=== PATIENT | male | born 1985 | race Caucasian/White ===

== ENCOUNTER → 2016-03-26 | Outpatient (CLI) | payer BC ==
[2016-03-26 08:37] LABS: HEMOGLOBIN 15.2 g/dL (14.0-18.0); MEAN CORPUSCULAR HEMOGLOBIN 30.5 PG (27-31); MEAN CORPUSCULAR HGB CONC 34.5 g/dL (33-37); MEAN PLATELET VOLUME 10.7 FL (7.4-12.2); RDW COEFFICIENT OF VARIATION 11.8 % (11.5-14.5); RED BLOOD COUNT 4.99 10^6/uL (4.70-6.10); WHITE BLOOD COUNT 5.51 10^3/uL (4.8-10.8)
[2016-03-26 09:14] LABS: ASPARTATE AMINO TRANSFERASE 23 IU/L (21-57); BILIRUBIN,TOTAL 1.1 mg/dL (0.3-1.2); BLOOD UREA NITROGEN 8 mg/dL (7-22); BUN/CREATININE RATIO 8.88 (6-20); CALCIUM 9.5 mg/dL (8.7-10.7); CHLORIDE 103 meq/L (98-112); CREATININE 0.9 mg/dL (0.70-1.50); EST GLOMERULAR FILTRATION > 60 (>60 ml/min/1.73m(2)); GLUCOSE 96 mg/dL (78-110); HDL CHOLESTEROL 44 mg/dL (40-150); POTASSIUM 4.1 meq/L (3.8-5.2); SODIUM 143 meq/L (135-145); TOTAL PROTEIN 7.4 g/dL (6.1-8.0); TRIGLYCERIDES 115 mg/dL (44-200)
== END ==
LOC: LAB 08:15
PROVIDERS: ATTEND Family Medicine
DX: Z00.00 Encounter for general adult medical examination without abnormal findings (principal)
CPT/HCPCS: 36415; 80053; 80061; 84443; 85027

== ENCOUNTER 2016-04-12 07:23 | Day surgery (SDC) | payer BC ==
[~2016-04-12 07:23] MED LIST: LIDOCAINE W/ SODIUM BICARB 0.5 ML SYR ONE; Lactated Ringers 1,000 ML PRIMARY IV ONE
[2016-04-12] MEDS ORDERED: Lidocaine Inj 1% 20 ML ONE (07:30)
[2016-04-12] MEDS ORDERED: MIDAZOLAM 5 MG/1 ML ONE (07:45)
[2016-04-12] MEDS ORDERED: fentaNYL Inj 100 MCG/2 ML VIAL ONE (07:45)
[2016-04-12] MEDS ORDERED: KETOROLAC 30 MG/1 ML VIAL ONE (08:48)
[2016-04-12] MEDS ORDERED: NEOMYCIN/BACITRACIN/POLYMYXIN 0.9 GM OINT PACKET TOPICAL ONE (08:50)
--- NOTE | 2016-04-12 09:03 | GEN.OPNOTE ---
Operative Note Surgery Date: 04/12/16 Preoperative Diagnosis: Desire for sterilization Postoperative Diagnosis: Same Procedure: Bilateral vasectomy Surgeon: Alex Lozoya MD Anesthesia Provider: José Luis Murrieta CRNA Anesthesia Type: Local, MAC Estimated Blood Loss (mL): 0 Fluids: LR please see anesthesia notes in EMR Pathology: None sent Indications: Patient would like to have a vasectomy. He is reaches reproductive goals. He states he does not want the vasa sent to pathology Operative Summary: The patient was brought into the operating room placed in dorsal lithotomy position prepped draped sterile fashion. I identified the vas deferens on the left side initially infiltrate local anesthetic dissect out the vas deferens removed a 1 cm segment tied off the distal end. I sewed the distal cut in back upon itself. I then returned the spermatic cord and its anatomical position closed the skin with 5-0 Vicryl simple sutures. I then identified the vas on the right side infiltrate local anesthetic. Dissect out the vas deferens. Removed a 1 cm segment. I tied off the distal and in a similar fashion Close the skin in a similar fashion. Patient tolerated well no complications. Counts were correct.
[2016-04-12 10:07] VITALS: RESP 16; TEMP 97.5
== END 2016-04-12 09:45 | disposition home or self-care (01) ==
LOC: SDSC 07:23
PROVIDERS: ATTEND Surgery
DX: Z30.2 Encounter for sterilization (principal)
CPT/HCPCS: 55250; J1885; J2704; J3010; J2001; J2250; J7120